=== PATIENT | male | born 1995 | race Caucasian/White ===

== ENCOUNTER 2020-06-12 22:14 | Emergency (ER) | payer SELFPAY ==
[~2020-06-12] VITALS: Ht 177.8 cm; Wt 77.1 kg
[2020-06-13] MEDS ORDERED: KETOROLAC TROMETH 60MG/2ML VIAL IM ONE (05:30)
[2020-06-13 06:58] VITALS: BP 110/60
== END 2020-06-13 06:58 | disposition home or self-care (01) ==
LOC: ER 22:14
DX: S33.5XXA Sprain of ligaments of lumbar spine, initial encounter (principal); M54.16 Radiculopathy, lumbar region; W50.2XXA Accidental twist by another person, initial encounter; Y93.89 Activity, other specified; Y92.89 Other specified places as the place of occurrence of the external cause; Y99.8 Other external cause status
CPT/HCPCS: 72100; 96372; 99283; J1885